=== PATIENT | male | born 1935 | race Caucasian/White ===

== ENCOUNTER 2017-07-13 14:02 | Inpatient (IN) | payer MEDICARE, BC, OTHER ==
[~2017-07-13] VITALS: Ht 172.7 cm; Wt 69.1 kg
[~2017-07-13 14:02] MED LIST: AMLO5TAB4 PO; ATOR20TA PO; BUPR150T12 PO; CALC-20 PO; DOCU100C36 PO; FOLI1TAB16 PO; LISI2.5T2 PO; MAGN500T2 PO; METH2.5T PO; METO25TA20 GT; PANT40TA2 GT; TAMS-12 GT; TRAM1TAB PO; TRAZ-144 PO; TYL2T MC; VIT1TABL75 PO
--- NOTE | 2017-07-13 14:15 | NUR ---
BBPA FROM SNF FOR ABNORMAL LABS: Hgb=6.6; Hct=20.8. PT IS CHRONIC TRACH-VENT DEPENDENT. GT NOTED. PT IS A/OX0, NON VERBAL. NAD ALL NEEDS ARE ATTENDED, KEPT WARM ADN COMFORTABLE. RT AT BEDSIDE FOR VENT SET UP
[2017-07-13 14:26] VITALS: BP 91/55
[2017-07-13] MEDS ORDERED: diphenhydrAMINE HCL 50 MG/ML VIAL IV ONE (16:00)
[2017-07-13] MEDS ORDERED: PANTOPRAZOLE 40 MG VIAL IV ONE (16:00)
[2017-07-13] MEDS ORDERED: IV NS 0.9% 500 ML BAG IV ONE (16:00)
[2017-07-13] MEDS ORDERED: ACETAMINOPHEN 325 MG TABLET PO ONE (16:00)
--- NOTE | 2017-07-13 16:02 | NUR ---
CALLED [facility], REINFORCING STEEL WORKER WAS PAGED.
[2017-07-13 16:14] LABS: BASOPHILS % (AUTO) 0.2 % (0.0-2.0); EOSINOPHILS # (AUTO) 0.1 /CMM (0.0-0.7); EOSINOPHILS % (AUTO) 0.9 % (0.0-6.0); HEMATOCRIT 21 % (39-51); HEMOGLOBIN 7.1 g/dL (13.5-17.5); LYMPHOCYTES % (AUTO) 16.6 % (20.0-44.0); MEAN CORPUSCULAR HEMOGLOBIN 30 PG (26.0-33.0); MEAN CORPUSCULAR HGB CONC 34 g/dl (31.0-36.0); MEAN CORPUSCULAR VOLUME 88 fL (80-96); MONOCYTES # (AUTO) 0.5 /CMM (0.1-1.30); MONOCYTES % (AUTO) 4.4 % (2.0-12.0); NEUTROPHILS # (AUTO) 9.2 /CMM (1.8-8.9); NEUTROPHILS % (AUTO) 77.9 % (43.0-81.0); PLATELET COUNT (AUTO) 241 /CMM (150-450); RDW COEFFICIENT OF VARIATION 15.6 (11.5-15.0); RED BLOOD CELL COUNT(AUTO) 2.35 MIL/uL (4.5-6.0); WHITE BLOOD COUNT (AUTO) 11.8 K/uL (4.3-11.0)
[2017-07-13] MEDS ORDERED: FERR300L GT (16:15)
[2017-07-13] MEDS ORDERED: CARB-93 GT (16:15)
[2017-07-13] MEDS ORDERED: PRED5TAB GT (16:15)
[2017-07-13] MEDS ORDERED: TRAM50TA2 PO (16:15)
[2017-07-13] MEDS ORDERED: TERA2CAP4 GT (16:15)
[2017-07-13] MEDS ORDERED: MAGN400T6 GT (16:15)
[2017-07-13] MEDS ORDERED: BETH50TA PO (16:15)
[2017-07-13] MEDS ORDERED: LANS30CA56 GT (16:15)
[2017-07-13] MEDS ORDERED: FINA5TAB3 GT (16:15)
[2017-07-13] MEDS ORDERED: LISI-607 GT (16:15)
[2017-07-13] MEDS ORDERED: HEPA50008 SQ (16:15)
[2017-07-13] MEDS ORDERED: NUT.237L67 GT (16:16)
[2017-07-13] MEDS ORDERED: BUPR75TA21 GT (16:19)
[2017-07-13] MEDS ORDERED: SENN-167 GT (16:19)
[2017-07-13] MEDS ORDERED: QUET25TA GT (16:19)
[2017-07-13] MEDS ORDERED: DOCU50LI GT (16:19)
[2017-07-13] MEDS ORDERED: MAGN400O6 GT (16:19)
[2017-07-13] MEDS ORDERED: BISA10SU8 RC (16:19)
[2017-07-13 16:32] LABS: ALANINE AMINOTRANSFERASE < 6 U/L (12-78); ALKALINE PHOSPHATASE 129 U/L (46-116); ASPARTATE AMINOTRANSFERASE 19 U/L (15-37); BILIRUBIN,DIRECT 0.1 mg/dL (0.0-0.2); BILIRUBIN,TOTAL 0.2 mg/dL (0.2-1.0); CALCIUM, SERUM 10.4 mg/dL (8.5-10.1); CARBON DIOXIDE 19 mmol/L (21-32); CHLORIDE 105 mmol/L (98-107); CREATININE 1.9 mg/dL (0.6-1.3); GLUCOSE 119 mg/dL (74-106); INR 1.06 (0.85-1.15); POTASSIUM 3.5 mmol/L (3.5-5.1); SODIUM SERUM 135 mmol/L (136-145); TOTAL PROTEIN, SERUM 5.7 g/dL (6.4-8.2)
[2017-07-13 16:34] LABS: TROPONIN I < 0.017 ng/mL (0.00-0.056)
[2017-07-13 16:35] LABS: UREA NITROGEN, BLOOD 115 mg/dL (7-18)
[2017-07-13] MEDS ORDERED: PANTOPRAZOLE 40 MG VIAL ONE (16:36)
--- NOTE | 2017-07-13 17:32 | NUR ---
PT CAME BACK FROM CT
[2017-07-13 17:35] VITALS: BP 132/58
--- NOTE | 2017-07-13 17:45 | NUR ---
REPORT GIVEN TO JULITA LUGO
[2017-07-13] MEDS ORDERED: ACETAMINOPHEN 325 MG TABLET ONE (18:01)
[2017-07-13] MEDS ORDERED: diphenhydrAMINE HCL 50 MG/ML VIAL ONE (18:01)
--- NOTE | 2017-07-13 18:05 | NUR ---
Information on unit of blood checked against patient wristband at bedside by two nurses. All information matches. Patient's friend/caregiver made aware of need to notify nurse at once if begins to experience itching, shortness of breath, flushing, feeling of impending doom, or other symptoms not previously present. blood transfusion started. Will cont to monitor
--- NOTE | 2017-07-13 18:35 | NUR ---
Pt transferred to floor via acls protocol
--- NOTE | 2017-07-13 18:45 | NUR ---
cable television access coordinator notes Kept patient comfortable, friend annika at bedside, will endorsed to next shift RN for admission.
--- NOTE | 2017-07-13 19:20 | NUR ---
DATABASE ADMINISTRATOR OPENING NOTES PT RESTING IN BED. PT HAS A TRACH, SHILEY 6, GTUBE, AND COLOSTOMY. PT IS NON VERBAL. PT FRIEND WAS AT BEDSIDE UNTIL 1915. NO S/S OF PAIN, DISTRESS, OR SOB AT THIS TIME. 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 ALL WOUNDS DOCUMENTED AND PHOTOGRAPHED. PT HAS A ATTILA MIDLINE, INTACT AND PATENT. PT IS S/P 1 UNIT OR PRBC. PT TOLERATED BLOOD WELL, NO ADVERSE REACTIONS. SAFETY PRECAUTIONS IN PLACE. WILL CONTINUE TO MONITOR.
[2017-07-13 20:00] VITALS: BP 134/59
--- NOTE | 2017-07-13 20:40 | NUR ---
TELEPHONE CLERK TELEGRAPH OFFICE NOTES SPOKE WITH DR CUEVAS REGARDING ADMITTING ORDERS. DR CUEVAS ORDERED TO HOLD ALL HOME MEDS SAVE PROTONIX 40 DAILY. ALSO ORDERED FOR PT TO BE NPO, ADMIT TO TELEMETRY.
[2017-07-14] VITALS: BP 109/42
[2017-07-14 04:00] VITALS: BP 119/50
--- NOTE | 2017-07-14 06:52 | NUR ---
HAZARDOUS MATERIALS ANALYST CLOSING NOTES PT RESTING IN BED. PT HAS A TRACH, SHILEY 6, GTUBE, AND COLOSTOMY. PT IS NON VERBAL. NO S/S OF PAIN, DISTRESS, OR SOB AT THIS TIME. 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 PT HAS A ATTILA MIDLINE, INTACT AND PATENT. PT IS S/P 1 UNIT OR PRBC. PT TOLERATED BLOOD WELL, NO ADVERSE REACTIONS. SAFETY PRECAUTIONS IN PLACE. WILL ENDORSE TO DAY SHIFT NURSE FOR CONTINUITY OF CARE.
[2017-07-14 07:02] LABS: BASOPHILS % (AUTO) 0.3 % (0.0-2.0); EOSINOPHILS # (AUTO) 0.2 /CMM (0.0-0.7); HEMATOCRIT 22 % (39-51); HEMOGLOBIN 7.7 g/dL (13.5-17.5); LYMPHOCYTES # (AUTO) 2.2 /CMM (0.8-4.8); MEAN CORPUSCULAR HEMOGLOBIN 30 PG (26.0-33.0); MEAN CORPUSCULAR HGB CONC 34 g/dl (31.0-36.0); MEAN CORPUSCULAR VOLUME 88 fL (80-96); MONOCYTES # (AUTO) 0.6 /CMM (0.1-1.30); NEUTROPHILS # (AUTO) 8.6 /CMM (1.8-8.9); NEUTROPHILS % (AUTO) 73.7 % (43.0-81.0); PLATELET COUNT (AUTO) 232 /CMM (150-450); RDW COEFFICIENT OF VARIATION 15.9 (11.5-15.0); RED BLOOD CELL COUNT(AUTO) 2.52 MIL/uL (4.5-6.0); WHITE BLOOD COUNT (AUTO) 11.6 K/uL (4.3-11.0)
[2017-07-14 07:19] LABS: CALCIUM, SERUM 10.3 mg/dL (8.5-10.1); CARBON DIOXIDE 17 mmol/L (21-32); CHLORIDE 108 mmol/L (98-107); CREATININE 1.9 mg/dL (0.6-1.3); GLUCOSE 70 mg/dL (74-106); POTASSIUM 3.2 mmol/L (3.5-5.1); SODIUM SERUM 137 mmol/L (136-145)
[2017-07-14 07:22] LABS: UREA NITROGEN, BLOOD 109 mg/dL (7-18)
[2017-07-14 08:00] VITALS: BP 127/58
[2017-07-14] MEDS ORDERED: PANTOPRAZOLE 40 MG VIAL IV SCH (08:00)
[2017-07-14 09:51] LABS: RETICULOCYTE COUNT 2.5 % (0.6-2.5)
--- NOTE | 2017-07-14 10:15 | NUR ---
RT RECD PT TRACHED INTACT AND SECURED ON MECH VENT. ALARMS ON AND AUDIBLE VENT PLUGGED IN RED OUTLET. BAG AND MASK AT HOB. SX SMALL YELLOW THICK SECRETIONS. NO RESP DISTRESS WILL CONTINUE TO MONITOR
[2017-07-14 10:27] LABS: THYROID STIMULATING HORMONE 2.999 uIU/mL (0.358-3.74); URIC ACID 10.2 mg/dL (2.6-7.2)
[2017-07-14] MEDS ORDERED: BISACODYL SUPP (10 MG) 10 MG/SUPP.RECT SUPP.RECT RC PRN (11:00)
[2017-07-14] MEDS ORDERED: NEPRO 1,000 ML BOTTLE GT SCH (11:00)
[2017-07-14] MEDS: predniSONE 5 MG TABLET GT SCH (12:12)
[2017-07-14] MEDS: Potassium Chloride 10 MEQ in IV D5/ 0.9% NACL 1,000 ML IV PRN ×2 (14:01→22:07)
[2017-07-14 16:14] VITALS: BP 141/61
[2017-07-14] MEDS: PANTOPRAZOLE 40 MG VIAL IV SCH (17:10)
[2017-07-14] MEDS: QUETIAPINE FUMARATE 25 MG TABLET GT SCH (17:10)
[2017-07-14] MEDS: FERROUS SULFATE UDC 300 MG/5 ML UDC GT SCH (17:10)
[2017-07-14] MEDS: DOCUSATE SODIUM LIQ 100 MG/10 ML UDC GT SCH (17:10)
--- NOTE | 2017-07-14 17:37 | NUR ---
Tele/RN - Notes Pt awake, alert to self, no s/s of pain, not in any form of distress, trached and vent dependent with Shiley 6 secured and intact, vent settings as follows: AC10, VT550, Fio2 40%, PEEP 5, tolerated well. Patient admitted for GIB/Anemia, started on Protonix IV BID, labs reviewed, hemoglobin improved post 1 unit PRBC transfusion, no active bleeding seen. Tele shows SR with first degree AVB, BBB, PVCs. Skin assessment done and documented. Wound nurse and dietary triggered for skin breakdown and low merced. KCI mattress ordered and pérez catheter in place for skin management. Pt turned and repositioned q2h and PRN if condition permits. Continue IVF D5NS + 10 meq KCl at 100 ml/hr, started on Novosource Renal at 40 ml/hr x 20 hrs. Patient scheduled for EGD in AM, consent signed by IVELISSE Ruiz NPO post midnight. Will continue with current medical management.
--- NOTE | 2017-07-14 19:51 | NUR ---
RN NOTES RECEIVED PT AWAKE ON BED, NON-VERBAL, VENT DEPENDENT, SR WITH ARRHYTHMIA, 1ST DEGREE AV BLOCK, BBB ON TELE MONITOR HR-83, G-TUBE FEEDING RUNNING @ 40ML/HR, F/C DRAINING CLEAR YELLOW URINE, COLOSTOMY BAG IN PLACE, NOT IN DISTRESS, SIDERAILSUPX2, CONTINUE TO MONITOR
[2017-07-14 19:59] VITALS: BP 133/71
[2017-07-14 20:00] VITALS: BP 133/71
--- NOTE | 2017-07-14 20:27 | NUR ---
RN NOTES SPOKE TO DR. RANDHAWA AND INFORMED HIM REGARDING PT.'S PARTNER CONCERNED. INFORMED DR. RANDHAWA THAT PT WAS IN TRAMADOL IN FACILITY BUT I ALSO INFORMED DR. RANDHAWA THAT AT THIS TIME PT. LOOKS COMFORTABLE. DR. RANDHAWA ORDERED TRAMADOL 50MG GT PRN ORDER NOTED AND CARRIED OUT
[2017-07-14] MEDS ORDERED: TRAMADOL HCL 50 MG TABLET GT SCH (21:00)
[2017-07-14] MEDS: TRAMADOL HCL 50 MG TABLET GT PRN (21:56)
[2017-07-14] MEDS: SENNOSIDES 8.6 MG TABLET GT SCH (21:56)
[2017-07-15] VITALS: BP 154/79
[2017-07-15 04:00] VITALS: BP 133/59
--- NOTE | 2017-07-15 06:00 | NUR ---
RN NOTES PT LOOKS IN PAIN-ULTRAM 50MG GT WAS GIVEN ORDERED, V/S STABLE
[2017-07-15] MEDS: TRAMADOL HCL 50 MG TABLET GT PRN ×2 (06:16→16:49)
--- NOTE | 2017-07-15 06:55 | NUR ---
RN NOTES , AWAKE, MORNING CARE RENDERED, NOT IN DISTRESS, G-TUBE FEEDING IN PLACE, SIDERAILSUPX2, PT NEEDS ATTENDED
[2017-07-15 07:15] LABS: BASOPHILS % (AUTO) 0.2 % (0.0-2.0); EOSINOPHILS # (AUTO) 0.2 /CMM (0.0-0.7); EOSINOPHILS % (AUTO) 2.2 % (0.0-6.0); HEMATOCRIT 23 % (39-51); HEMOGLOBIN 7.9 g/dL (13.5-17.5); LYMPHOCYTES # (AUTO) 2.2 /CMM (0.8-4.8); LYMPHOCYTES % (AUTO) 19.2 % (20.0-44.0); MEAN CORPUSCULAR HEMOGLOBIN 30 PG (26.0-33.0); MEAN CORPUSCULAR HGB CONC 34 g/dl (31.0-36.0); MEAN CORPUSCULAR VOLUME 88 fL (80-96); MONOCYTES # (AUTO) 0.8 /CMM (0.1-1.30); MONOCYTES % (AUTO) 6.9 % (2.0-12.0); NEUTROPHILS # (AUTO) 8.1 /CMM (1.8-8.9); NEUTROPHILS % (AUTO) 71.5 % (43.0-81.0); PLATELET COUNT (AUTO) 251 /CMM (150-450); RDW COEFFICIENT OF VARIATION 16.6 (11.5-15.0); RED BLOOD CELL COUNT(AUTO) 2.62 MIL/uL (4.5-6.0); WHITE BLOOD COUNT (AUTO) 11.3 K/uL (4.3-11.0)
--- NOTE | 2017-07-15 07:49 | NUR ---
Tele/RN - Notes Patient awake, no s/s of pain, not in any form of distress, vent settings tolerated well, tele shows SR with first degree AVB, BBB, PVCs. Nieto catheter and colostomy bag in place. Patient turned and repositioned q2h and PRN if condition permits for skin management. IVF D5NS + 10 meq KCl at 100 ml/hr infusing well on the ATTILA midline, tube feeding and GT medications held, scheduled for EGD today, pre-op checklist done. Will continue to monitor closely.
[2017-07-15 07:52] LABS: CALCIUM, SERUM 9.7 mg/dL (8.5-10.1); CARBON DIOXIDE 18 mmol/L (21-32); CHLORIDE 113 mmol/L (98-107); CREATININE 1.9 mg/dL (0.6-1.3); GLUCOSE 223 mg/dL (74-106); MAGNESIUM 1.9 mg/dL (1.8-2.4); PHOSPHORUS 3.4 mg/dL (2.5-4.9); POTASSIUM 3.2 mmol/L (3.5-5.1); SODIUM SERUM 142 mmol/L (136-145)
[2017-07-15 07:53] LABS: UREA NITROGEN, BLOOD 93 mg/dL (7-18)
[2017-07-15 08:00] VITALS: BP 121/68
[2017-07-15] MEDS: predniSONE 5 MG TABLET GT SCH (08:02)
[2017-07-15] MEDS: MAGNESIUM OXIDE 400 MG TABLET GT SCH (08:02)
[2017-07-15] MEDS: DOCUSATE SODIUM LIQ 100 MG/10 ML UDC GT SCH ×2 (08:02→16:47)
[2017-07-15] MEDS: QUETIAPINE FUMARATE 25 MG TABLET GT SCH ×2 (08:02→16:47)
[2017-07-15] MEDS: FINASTERIDE (5 MG) 5 MG TABLET GT SCH (08:02)
[2017-07-15] MEDS: FERROUS SULFATE UDC 300 MG/5 ML UDC GT SCH ×2 (08:02→16:47)
[2017-07-15] MEDS: buPROPion 75 MG TABLET GT SCH ×2 (08:03→16:47)
[2017-07-15] MEDS: AMLODIPINE BESYLATE 5 MG TABLET PO SCH ×2 (08:03→16:47)
[2017-07-15] MEDS: PANTOPRAZOLE 40 MG VIAL IV SCH ×2 (08:18→16:47)
[2017-07-15] MEDS ORDERED: HYDROGEL DRESSING 90 GM TUBE TP SCH (09:00)
[2017-07-15] MEDS: POTASSIUM CL. PREMIX PERIPHER. 50 ML IV SCH ×6 (10:21→16:50)
[2017-07-15] MEDS: Potassium Chloride 10 MEQ in IV D5/ 0.9% NACL 1,000 ML IV PRN (10:30)
[2017-07-15 12:00] VITALS: BP 131/65
[2017-07-15] MEDS ORDERED: HYDROCODONE/APAP 5/325MG 1 EACH TABLET PO PRN (12:00)
[2017-07-15] MEDS: MORPHINE SULFATE INJ 4 MG/ML DISP.SYRIN IV PRN (14:25)
[2017-07-15 16:00] VITALS: BP 131/73
[2017-07-15] MEDS: DAKINS QUARTER STRENGTH (0.125%) 480 ML BOTTLE TOP SCH (16:00)
[2017-07-15 18:07] LABS: APPEARANCE,URINE SL CLOUDY (CLEAR); BILIRUBIN,URINE NEGATIVE (NEGATIVE); BLOOD, URINE 2+ Ery/uL (NEGATIVE); COLOR,URINE YELLOW (YELLOW); KETONES,URINE NEGATIVE (NEGATIVE); LEUKOCYTE ESTERASE ,URINE 3+ (NEGATIVE); NITRITE, URINE POSITIVE (NEGATIVE); PROTEIN,URINE 1+ mg/dl (NEGATIVE); UGLUCOSE NEGATIVE (NEGATIVE); UROBILINOGEN,URINE 0.2 EU/dL (0.2)
--- NOTE | 2017-07-15 18:08 | NUR ---
Tele/RN - Notes Patient in no acute distress, no s/s of pain, EGD shows gastritis, no bleeding, resumed meds and tube feeding. Potassium level 3.2, repleted with KCl [address] chest wo contrast done, pending result. All needs anticipated. Patient scheduled for sacral wound debridement tomorrow, consent signed by DPOA. Will continue to monitor closely.
[2017-07-15 19:03] LABS: BACTERIA,URINE Many /HPF (None Seen); CALCIUM OXALATE CRYSTALS,UR Few /HPF (None Seen); SQUAMOUS EPITHELIAL CELL,UR Moderate /HPF (None Seen); WBC,URINE TOO NUMEROUS TO COUN /HPF (0-3)
--- NOTE | 2017-07-15 19:30 | NUR ---
STRUCTURAL METAL FABRICATOR APPRENTICE OPENING NOTES: PATIENT IN BED, EYES OPEN SPONTANEOUSLY TO NAME AND TOUCH, NON VERBAL. APPEARS CALM AND IN NO DISTRESS. ON [facility] VENTILATION VIA TRACH WITH THE FF SETTINGS: AC: 10, TV: 550, FIO2: 40%, PEEP: 5. BREATHING EVEN AND UNLABORED, O2 SAT AT 99%. ON TELE MONITORING: SINUS RHYTHM WITH FIRST DEGREE AVB AT RATE OF 80S. WITH GT FEEDING OF NOVASOURCE RUNNING AT 40 ML/HR. COLOSTOMY BAG AT R LOWER ABDOMEN, WITH MINIMAL AMOUNT OF SOFT DARK BROWN STOOL. ORTIZ CATHETER IN PLACE DRAINING CLEAR YELLOW URINE. ATTILA MIDLINE G 20 INTACT AND PATENT, CURRENTLY INFUSING WITH NS 1L + 10 MEQS KCL X 100 ML/HR. MAINTAINED HOB ELEVATED. PROVIDED FOR COMFORT AND SAFETY. BED IN LOWEST AND LOCKED POSITION, SIDERAILS UP X 3, CLINICAL ALARMS AT HIGHEST LEVEL. WILL CONT TO MONITOR.
[2017-07-15 20:00] VITALS: BP 135/64
--- NOTE | 2017-07-15 20:34 | NUR ---
CALLED DR ESTEFANY CUEVAS TO INFORM RE RECENT CT CHEST RESULT, SHOWING VOLUME OVERLOAD WITH PULMO EDEMA, AND ASKED RE CURRENT IV FLUIDS ON ORDER. NNO GIVEN BY . WILL CONT TO MONITOR PATIENT FOR SIGNS OF CONGESTION.
[2017-07-15] MEDS: SENNOSIDES 8.6 MG TABLET GT SCH (22:19)
[2017-07-15] MEDS: RENAL NOVASOURCE 1,000 ML BOTTLE GT PRN (22:24)
[2017-07-16] VITALS (7 sets, daily range): BP systolic 117–144; BP diastolic 46–69
[2017-07-16] MEDS: MORPHINE SULFATE INJ 4 MG/ML DISP.SYRIN IV PRN ×4 (00:57→21:04)
--- NOTE | 2017-07-16 01:03 | NUR ---
RN NOTES: PATIENT APPEARS TO BE IN PAIN, AWAKE, RESTLESS, RR AT 24-26 PER MIN. VS STABLE. ADMINISTERED MORPHINE 2 MG IV. POSITIONED FOR COMFORT. WILL CONT TO MONITOR.
--- NOTE | 2017-07-16 03:24 | NUR ---
RN NOTES: CRACKLES HEARD UPON AUSCULTATION. ALSO ASSESSED BY RT. IV FLUIDS HELD FOR NOW. MAINTAINED HOB ELEVATED, SUCTIONED PRN. O2 SAT REMAINS AT 99%.
[2017-07-16] MEDS: DAKINS QUARTER STRENGTH (0.125%) 480 ML BOTTLE TOP SCH ×2 (04:27→15:22)
[2017-07-16] MEDS: TRAMADOL HCL 50 MG TABLET GT PRN (04:31)
--- NOTE | 2017-07-16 04:31 | NUR ---
RN NOTES: PATIENT APPEARS RESTLESS, GRIMACING. BP CHECKED, STABLE. ADMINISTERED TRAMADOL 50 MG PER GT. WILL CONT TO MONITOR.
--- NOTE | 2017-07-16 06:05 | NUR ---
RN NOTES: PATIENT AWAKE, APPEARS RESTLESS STILL AND WITH OCCASIONAL GRIMACE. RESPIRATIONS AT 22-24 RAMSES MIN. VS STABLE. ADMINISTERED MORPHINE 2 MG IV. WILL CONT TO MONITOR.
--- NOTE | 2017-07-16 06:43 | NUR ---
BUFFING MACHINE OPERATOR CLOSING NOTES: PATIENT IN BED, NON VERBAL, EYES OPEN SPONTANEOUSLY, ON MECH VENTILATION, BREATHING EVEN AND UNLABORED. SUCTIONED PRN. MAINTAINED HOB ELEVATED. O2 SAT REMAINS AT 99-100%. ON TELE MONITORING: SINUS RHYTHM WITH 1ST DEG AVB AT RATE OF 80S. WITH GT FEEDING OF NOVASOURCE RUNNING AT 40 ML/HR. COLOSTOMY BAG REPLACED. EMPTIED PRN. ORTIZ CATHETER IN PLACE DRAINING CLOUDY YELLOW URINE. WOUND TREATMENT DONE. TURNED AND REPOSITIONED. PROVIDED FOR COMFORT AND SAFETY. BED IN LOWEST AND LOCKED POSITION, SIDERAILS UP X 3, CLINICAL ALARMS AT HIGHEST LEVEL. WILL ENDORSE TO AM RN FOR ANA.
[2017-07-16 07:04] LABS: BASOPHILS % (AUTO) 0.3 % (0.0-2.0); EOSINOPHILS # (AUTO) 0.3 /CMM (0.0-0.7); EOSINOPHILS % (AUTO) 2.9 % (0.0-6.0); HEMATOCRIT 25 % (39-51); HEMOGLOBIN 8.4 g/dL (13.5-17.5); LYMPHOCYTES # (AUTO) 2.6 /CMM (0.8-4.8); LYMPHOCYTES % (AUTO) 21.9 % (20.0-44.0); MEAN CORPUSCULAR HEMOGLOBIN 31 PG (26.0-33.0); MEAN CORPUSCULAR HGB CONC 34 g/dl (31.0-36.0); MEAN CORPUSCULAR VOLUME 91 fL (80-96); MONOCYTES # (AUTO) 0.7 /CMM (0.1-1.30); MONOCYTES % (AUTO) 5.8 % (2.0-12.0); NEUTROPHILS # (AUTO) 8.1 /CMM (1.8-8.9); NEUTROPHILS % (AUTO) 69.1 % (43.0-81.0); PLATELET COUNT (AUTO) 269 /CMM (150-450); RDW COEFFICIENT OF VARIATION 16.5 (11.5-15.0); RED BLOOD CELL COUNT(AUTO) 2.75 MIL/uL (4.5-6.0); WHITE BLOOD COUNT (AUTO) 11.7 K/uL (4.3-11.0)
--- NOTE | 2017-07-16 07:15 | NUR ---
RN INITIAL NOTES PATIENT IS NON-VERBAL, RESTING COMFORTABLY, NO S/SX OF PAIN OR DISCOMFORT, TOLERATING MECHANICAL VENT SETTINGS, NO SHORTNESS OF BREATH NOTED. GTF ONGOING NO RESIDUAL, NOVASOURCE INCREASED TO 45CC/HR AND WILL MONITOR RESIDUAL, ABD DRESSING C/D/I, COLOSTOMY IN PLACED AND DRAINING, NEEDS ATTENDED AND MET, CALL LIGHT WITHIN REACH, WILL CONTINUE TO MONITOR. Addendum: 07/16/17 at 0824 by MIRZA KIRK RN CORRECTION: GTF CHANGED BACK TO 40CC/HR, PER MD'S ORDER.
[2017-07-16 07:19] LABS: CALCIUM, SERUM 9.8 mg/dL (8.5-10.1); CARBON DIOXIDE 18 mmol/L (21-32); CHLORIDE 117 mmol/L (98-107); CREATININE 1.7 mg/dL (0.6-1.3); GLUCOSE 191 mg/dL (74-106); MAGNESIUM 1.8 mg/dL (1.8-2.4); POTASSIUM 3.6 mmol/L (3.5-5.1); SODIUM SERUM 144 mmol/L (136-145)
[2017-07-16 07:22] LABS: UREA NITROGEN, BLOOD 88 mg/dL (7-18)
[2017-07-16 08:11] LABS: *SPE A/G RATIO 0.4 (0.7-1.7); *SPE ALBUMIN 1.5 g/dL (2.9-4.4); *SPE ALPHA-1-GLOBULIN 0.3 g/dL (0.0-0.4); *SPE ALPHA-2-GLOBULIN 0.7 g/dL (0.4-1.0); *SPE BETA GLOBULIN 1.2 g/dL (0.7-1.3); *SPE GLOBULIN, TOTAL 3.5 g/dL (2.2-3.9); *SPE M-SPIKE Not Observed g/dL (Not Observed); *SPEGAMMA GLOBULIN 1.2 g/dL (0.4-1.8)
[2017-07-16] MEDS: DOCUSATE SODIUM LIQ 100 MG/10 ML UDC GT SCH ×2 (09:24→17:22)
[2017-07-16] MEDS: QUETIAPINE FUMARATE 25 MG TABLET GT SCH ×2 (09:25→17:23)
[2017-07-16] MEDS: AMLODIPINE BESYLATE 5 MG TABLET PO SCH ×2 (09:25→17:22)
[2017-07-16] MEDS: MAGNESIUM OXIDE 400 MG TABLET GT SCH (09:25)
[2017-07-16] MEDS: predniSONE 5 MG TABLET GT SCH (09:25)
[2017-07-16] MEDS: FINASTERIDE (5 MG) 5 MG TABLET GT SCH (09:25)
[2017-07-16] MEDS: buPROPion 75 MG TABLET GT SCH ×2 (09:25→17:22)
[2017-07-16] MEDS: PANTOPRAZOLE 40 MG VIAL IV SCH ×2 (09:25→17:22)
[2017-07-16] MEDS: FERROUS SULFATE UDC 300 MG/5 ML UDC GT SCH ×2 (09:27→17:22)
--- NOTE | 2017-07-16 12:30 | NUR ---
RN NOTES SACRAL CHECKED FOR BLEEDING. NO FURTHER EPISODE OF BLEEDING AT THIS TIME. GAUZE CHANGED AND COVERED WITH ABD PAD.
[2017-07-16] MEDS ORDERED: LEVOFLOXACIN 500 MG /D5W 100ML 500 MG in PREMIX 1 EA IV SCH (14:30)
--- NOTE | 2017-07-16 14:30 | NUR ---
WOUND CARE CONSULT: PT FOLLOWED BY PLASTIC SURGICAL TEAM FOR WOUNDS. DEFER TO SURGICAL TEAM FOR WOUND TREATMENT PLAN. ALL SKIN PROTECTION AND PRESSURE ULCER PREVENTION MEASURES IN PLACE. PT ON [place] ELUM ISOFLEX LOW AIRLOSS BED. CURRENT SON SCORE IS 10.
[2017-07-16] MEDS ORDERED: LEVOFLOXACIN 750 MG /D5W 150ML 750 MG in PREMIX 1 EA IV SCH (15:00)
[2017-07-16] MEDS: CEFTRIAXONE 1 G in IV D5W 50 ML IV SCH (15:22)
--- NOTE | 2017-07-16 18:57 | NUR ---
RN NOTES PATIENT TRANSFERRED TO A LOW AIR LOSS MATTRESS, WOUND CARE TREATMENT RENDERED, TURNED AND REPOSITIONED EVERY 2 HOURS, MECHANICAL VENT SETTINGS TOLERATING WELL, GTF TURNED OFF. REAGAN MIDLINE SALINE LOCK. KEPT PATIENT COMFORTABLE, DRY DRESSING ON SACRAL AREA C/D/I, NO S/SX OF BLEEDING NOTED, CALL LIGHT WITHIN REACH, WILL ENDORSE TO FORM BUILDER FOR ANA.
[2017-07-16] MEDS ORDERED: Z GUARD REMEDY 2 OZ OINT TP PRN (19:00)
--- NOTE | 2017-07-16 19:30 | NUR ---
INSIDE SALES TRAINER OPENING NOTES: PATIENT IN BED, EYES OPEN SPONTANEOUSLY TO NAME AND TOUCH, NON VERBAL. APPEARS CALM AND IN NO DISTRESS. ON [facility] VENTILATION VIA TRACH WITH THE FF SETTINGS: AC: 10, TV: 550, FIO2: 40%, PEEP: 5. BREATHING EVEN AND UNLABORED, RHONCHI HEARD OVER JOSE MARTIN UPPER LUNG WEST, O2 SAT AT 99%. ON TELE MONITORING: SINUS RHYTHM WITH FIRST DEGREE AVB AT RATE OF 80S. WITH G TUBE OVER LEFT SIDE OF ABDOMEN, FEEDING TO BE RESUMED AT 2200PM. COLOSTOMY BAG AT R LOWER ABDOMEN, WITH LIQUID STOOLS IN BAG. ORTIZ CATHETER IN PLACE DRAINING CLOUDY YELLOW URINE. ATTILA MIDLINE G 20 INTACT AND PATENT TO FLUSH. MAINTAINED HOB ELEVATED. SUCTIONED MOUTH AND TRACHE. PROVIDED FOR COMFORT AND SAFETY. BED IN LOWEST AND LOCKED POSITION, SIDERAILS UP X 3, CLINICAL ALARMS AT HIGHEST LEVEL. WILL CONT TO MONITOR.
[2017-07-16] MEDS: SENNOSIDES 8.6 MG TABLET GT SCH (21:05)
[2017-07-16] MEDS: RENAL NOVASOURCE 1,000 ML BOTTLE GT PRN (21:43)
[2017-07-17] VITALS: BP 117/60
[2017-07-17] MEDS: DAKINS QUARTER STRENGTH (0.125%) 480 ML BOTTLE TOP SCH ×2 (03:58→15:24)
[2017-07-17 04:00] VITALS: BP 139/74
[2017-07-17] MEDS: MORPHINE SULFATE INJ 4 MG/ML DISP.SYRIN IV PRN ×3 (04:28→20:34)
--- NOTE | 2017-07-17 04:32 | NUR ---
RN NOTES: PATIENT AWAKE, RESTLESS, APPEARS TO BE IN PAIN. VS STABLE. ADMINISTERED MORPHINE 2 MG IV PRN. WILL CONT TO MONITOR.
--- NOTE | 2017-07-17 06:30 | NUR ---
DIAPHRAGM BUILDER CLOSING NOTES: PATIENT IN BED, NON VERBAL, EYES OPEN SPONTANEOUSLY. ON [facility] VENTILATION, BREATHING EVEN AND UNLABORED. SUCTIONED PRN. O2 SAT AT 98-99%. ON TELE MONITORING: SINUS RHYTHM WITH FIRST DEGREE AVB, BBB AND PVCS. COLOSTOMY AT R SIDE OF ABDOMEN, DRAINED LIQUID STOOL FROM IT THROUGH NIGHT. ORTIZ CATHETER IN PLACE DRAINING CLOUDY YELLOW URINE. ON GT FEEDING OF NOVASOURCE RUNNING AT 40 ML/HR, PATIENT ABLE TO TOLERATE FEEDING WELL. MORNING CARE RENDERED. DUE MEDS GIVEN. PROVIDED FOR COMFORT AND SAFETY. BED IN LOWEST AND LOCKED POSITION, SIDERAILS UP X 3, CLINICAL ALARMS AT HIGHEST LEVEL. WILL ENDORSE TO AM RN FOR ANA.
--- NOTE | 2017-07-17 07:42 | NUR ---
TELE/RN OPENING NOTE PATIENT IS RECEIVED IN BED, NON-VERBAL, OPENS EYES SPONTANEOUSLY. PATIENT IS ON VENT. RESPIRATION REGULAR AND UNLABORED. O2 SAT AT 98%. PATIENT SINUS RHYTHM WITH AVB AND BBB. PATIENT IN NO APPARENT DISTRESS. RIGHT SIDE COLOSTOMY BAG DARNING LIQUID STOOL. ORTIZ CATH DARNING FREELY CLEAR, YELLOW COLOR URINE. GT FEEDING ON AT 40 ML/MR. HOB ELEVATED. BED LOW AND LOCKED. SIDE RAILS UP X3. CALL LIGHT WITHIN REACH. WILL CONTINUE TO MONITOR.
[2017-07-17 08:00] VITALS: BP 154/63
[2017-07-17] MEDS: MAGNESIUM OXIDE 400 MG TABLET GT SCH (08:59)
[2017-07-17] MEDS: PANTOPRAZOLE 40 MG VIAL IV SCH ×2 (08:59→16:51)
[2017-07-17] MEDS: FINASTERIDE (5 MG) 5 MG TABLET GT SCH (08:59)
[2017-07-17] MEDS: predniSONE 5 MG TABLET GT SCH (08:59)
[2017-07-17] MEDS: DOCUSATE SODIUM LIQ 100 MG/10 ML UDC GT SCH ×2 (09:00→16:51)
[2017-07-17] MEDS: AMLODIPINE BESYLATE 5 MG TABLET PO SCH ×2 (09:00→16:51)
[2017-07-17] MEDS: QUETIAPINE FUMARATE 25 MG TABLET GT SCH ×2 (09:00→16:51)
[2017-07-17] MEDS: FERROUS SULFATE UDC 300 MG/5 ML UDC GT SCH ×2 (09:01→16:51)
[2017-07-17] MEDS: buPROPion 75 MG TABLET GT SCH ×2 (09:02→16:51)
[2017-07-17 09:24] LABS: BASOPHILS % (AUTO) 0.4 % (0.0-2.0); EOSINOPHILS # (AUTO) 0.3 /CMM (0.0-0.7); EOSINOPHILS % (AUTO) 2.2 % (0.0-6.0); HEMATOCRIT 25 % (39-51); HEMOGLOBIN 8.3 g/dL (13.5-17.5); LYMPHOCYTES # (AUTO) 2.6 /CMM (0.8-4.8); LYMPHOCYTES % (AUTO) 18.3 % (20.0-44.0); MEAN CORPUSCULAR HEMOGLOBIN 30 PG (26.0-33.0); MEAN CORPUSCULAR HGB CONC 34 g/dl (31.0-36.0); MEAN CORPUSCULAR VOLUME 91 fL (80-96); MONOCYTES # (AUTO) 0.6 /CMM (0.1-1.30); MONOCYTES % (AUTO) 4.4 % (2.0-12.0); NEUTROPHILS # (AUTO) 10.4 /CMM (1.8-8.9); NEUTROPHILS % (AUTO) 74.7 % (43.0-81.0); PLATELET COUNT (AUTO) 231 /CMM (150-450); RDW COEFFICIENT OF VARIATION 17.1 (11.5-15.0); RED BLOOD CELL COUNT(AUTO) 2.73 MIL/uL (4.5-6.0)
[2017-07-17 09:39] LABS: CALCIUM, SERUM 9.9 mg/dL (8.5-10.1); CARBON DIOXIDE 18 mmol/L (21-32); CHLORIDE 119 mmol/L (98-107); CREATININE 1.7 mg/dL (0.6-1.3); GLUCOSE 153 mg/dL (74-106); MAGNESIUM 1.9 mg/dL (1.8-2.4); POTASSIUM 3.9 mmol/L (3.5-5.1); SODIUM SERUM 147 mmol/L (136-145); UREA NITROGEN, BLOOD 78 mg/dL (7-18)
[2017-07-17 12:00] VITALS: BP 152/63
[2017-07-17] MEDS: CEFTRIAXONE 1 G in IV D5W 50 ML IV SCH (15:23)
[2017-07-17 16:00] VITALS: BP 161/76
[2017-07-17] MEDS: RENAL NOVASOURCE 1,000 ML BOTTLE GT PRN (17:36)
[2017-07-17] MEDS: MEROPENEM 500 MG in IV NS 0.9% 50 ML IV SCH (18:00)
--- NOTE | 2017-07-17 19:30 | NUR ---
BRIMMER BLOCKER NOTE RECEIVED PATIENT FROM DAY SHIFT, PATIENT IS AWAKE, OPEN EYES, NON-VERBAL, VENT DEPENDENT PATIENT, NO RESPIRATORY DISTRESS AT THIS TIME, O2 SAT 99%. TELE MONITOR SR WITH BBB&PVC. GTUBE FEEDING, RUNNING NOVASOURCE 40ML/HR, AND ORTIZ WITH CLOUDY YELLOW URINE NOTED. COLOSTOMY BAG PRESENT WELL WITH GREENISH STOOL INSIDE. LEFT UPPER MIDLINE IS PATENT AND INTACT, HL ONLY. SRX2, BED IN LOW POSITION, CALL LIGHT WITHIN REACH, WILL CONTINUE TO MONITOR PATIENT.
--- NOTE | 2017-07-17 19:34 | NUR ---
TELE/RN CLOSING NOTE PATIENT OPENS EYES TO VERBAL STIMULI, NON-VERBAL. PATIENT IS ON VENT. RESPIRATION REGULAR AND UNLABORED AND O2 SAT AT 98%. PATIENT SINUS RHYTHM WITH AVB AND BBB. PATIENT IN NO APPARENT DISTRESS. RIGHT SIDE COLOSTOMY BAG DARNING LIQUID STOOL. ORTIZ CATH DARNING FREELY CLEAR, YELLOW COLOR URINE. GT FEEDING ON AT 40 ML/MR. HOB ELEVATE TO PREVENT ASPIRATION. GOOD AND GENTLE SKIN CARE RENDERED. KEPT CLEAN AND COMFORTABLE. ALL NEEDS ATTENDED. BED LOW AND LOCKED. SIDE RAILS UP X3. CALL LIGHT WITHIN REACH. WILL ENDORSE TO SHERIFF'S OFFICER.
[2017-07-17 20:00] VITALS: BP 135/57
[2017-07-17] MEDS: SENNOSIDES 8.6 MG TABLET GT SCH (21:27)
[2017-07-18 00:46] VITALS: BP 142/56
[2017-07-18 04:00] VITALS: BP 141/63
[2017-07-18] MEDS: DAKINS QUARTER STRENGTH (0.125%) 480 ML BOTTLE TOP SCH ×2 (04:11→16:55)
[2017-07-18] MEDS: MORPHINE SULFATE INJ 4 MG/ML DISP.SYRIN IV PRN ×2 (04:56→17:16)
[2017-07-18] MEDS: MEROPENEM 500 MG in IV NS 0.9% 50 ML IV SCH ×2 (05:59→17:09)
[2017-07-18 06:50] LABS: BASOPHILS % (AUTO) 0.1 % (0.0-2.0); EOSINOPHILS # (AUTO) 0.4 /CMM (0.0-0.7); EOSINOPHILS % (AUTO) 2.5 % (0.0-6.0); HEMATOCRIT 27 % (39-51); HEMOGLOBIN 9.1 g/dL (13.5-17.5); LYMPHOCYTES # (AUTO) 3.2 /CMM (0.8-4.8); LYMPHOCYTES % (AUTO) 19.3 % (20.0-44.0); MEAN CORPUSCULAR HEMOGLOBIN 30 PG (26.0-33.0); MEAN CORPUSCULAR HGB CONC 34 g/dl (31.0-36.0); MEAN CORPUSCULAR VOLUME 91 fL (80-96); MONOCYTES # (AUTO) 0.5 /CMM (0.1-1.30); MONOCYTES % (AUTO) 3.3 % (2.0-12.0); NEUTROPHILS # (AUTO) 12.4 /CMM (1.8-8.9); NEUTROPHILS % (AUTO) 74.8 % (43.0-81.0); PLATELET COUNT (AUTO) 238 /CMM (150-450); RDW COEFFICIENT OF VARIATION 17.3 (11.5-15.0); RED BLOOD CELL COUNT(AUTO) 2.99 MIL/uL (4.5-6.0); WHITE BLOOD COUNT (AUTO) 16.6 K/uL (4.3-11.0)
--- NOTE | 2017-07-18 06:54 | NUR ---
OPERATIONS AGENT NOTE PATIENT IS RESTING IN BED, NO ACUTE DISTRESS NOTED DURING THE NIGHTSHIFT. MORNING CARE RENDERED, DUE MEDS GIVEN, DRESSING CHANGE COMPLETED. TELE SR 85 WITH BBB, PVCS. PROVIDED FOR COMFORT AND SAFETY. BED IN LOWEST AND LOCKED POSITION, SIDERAILS UP X 2, CLINICAL ALARMS AT HIGHEST LEVEL. WILL ENDORSE TO AM RN FOR ANA.
[2017-07-18 07:10] LABS: CALCIUM, SERUM 10.1 mg/dL (8.5-10.1); CARBON DIOXIDE 19 mmol/L (21-32); CHLORIDE 119 mmol/L (98-107); CREATININE 1.6 mg/dL (0.6-1.3); GLUCOSE 143 mg/dL (74-106); MAGNESIUM 1.8 mg/dL (1.8-2.4); PHOSPHORUS 2.6 mg/dL (2.5-4.9); POTASSIUM 3.7 mmol/L (3.5-5.1); SODIUM SERUM 148 mmol/L (136-145); UREA NITROGEN, BLOOD 76 mg/dL (7-18)
[2017-07-18 08:00] VITALS: BP_SYST 119; BP_SYST 126; BP_DIAS 65; BP_DIAS 68
--- NOTE | 2017-07-18 08:17 | NUR ---
PEDIATRICS PHYSICIAN OPENING NOTE RECEIVED BEDSIDE SBAR REPORT ON THE PATIENT. PATIENT IS NON-VERBAL, BUT OPENS EYES TO NAME AND TOUCH. BED IS LOCKED IN LOWEST POSITION, SIDE RAILS UP X3, BED ALARM IS ON. CALL LIGHT WITHIN REACH. PATIENT'S ROOM CLOSE TO THE NURSES STATION OF OBSERVATION. PATIENT IS ON VENTILATOR. VENTILATOR SETTINGS ORDERED. VENTILATOR PLUGGED INTO THE RED OUTLET. MULTIPLE SKIN CONDITIONS PRESENT. EXTERNAL IRRIGATION LABORER READING SR 87 W BBB AND OCCASIONAL PVS's. PATIENT HAS A COLOSTOMY BAG, ORTIZ CATHETER AND G-TUBE FOR ENTERAL FEEDING. FEEDING RATE ORDERED. ATTILA MIDLINE IS INTACT. NO S/S OF DISTRESS. NO S/S OF PAIN/DISCOMFORT. PATIENT REPOSITIONED FOR COMFORT AND MAINTENANCE OF FUNCTIONAL ALIGNMENT OF THE LIMBS. WILL CONTINUE TO ASSESS/MONITOR THROUGHOUT THE SHIFT.
[2017-07-18] MEDS: predniSONE 5 MG TABLET GT SCH (09:34)
[2017-07-18] MEDS: PANTOPRAZOLE 40 MG VIAL IV SCH ×2 (09:34→17:05)
[2017-07-18] MEDS: buPROPion 75 MG TABLET GT SCH ×2 (09:34→17:03)
[2017-07-18] MEDS: QUETIAPINE FUMARATE 25 MG TABLET GT SCH ×2 (09:34→17:03)
[2017-07-18] MEDS: FINASTERIDE (5 MG) 5 MG TABLET GT SCH (09:34)
[2017-07-18] MEDS: DOCUSATE SODIUM LIQ 100 MG/10 ML UDC GT SCH ×2 (09:34→17:02)
[2017-07-18] MEDS: AMLODIPINE BESYLATE 5 MG TABLET PO SCH ×2 (09:35→17:04)
[2017-07-18] MEDS: MAGNESIUM OXIDE 400 MG TABLET GT SCH (09:38)
[2017-07-18] MEDS: FERROUS SULFATE UDC 300 MG/5 ML UDC GT SCH ×2 (09:38→17:02)
--- NOTE | 2017-07-18 09:38 | NUR ---
MAG OXIDE FELL ON TH EFLOOR WHEN OPENING THE PACKAGE. DISPENSED ANOTHER ONE FROM [facility]. ADMINISTERED ONCE ORDERED. TABLET THAT FELL ON THE FLOOR WAS DISCARDED AT PHARMACY [facility] AT IN THE MEDICATION ROOM PER PROTOCOL.
[2017-07-18 12:00] VITALS: BP_SYST 126; BP_SYST 133; BP_DIAS 65; BP_DIAS 68
[2017-07-18 16:00] VITALS: BP 149/69
--- NOTE | 2017-07-18 17:42 | NUR ---
ADMINISTERED MORPHINE PATIENT APPEARED DISTRESS AND UNCOMFORTABLE. FLACC ASSESSMENT REVEALED PAIN RATING 7. WOUND CARE PERFORMED. COLOSTOMY BAG CHANGED. PATIENT TOLERATED PROCEDURE WELL.
--- NOTE | 2017-07-18 19:32 | NUR ---
RUG SHAMPOOER CLOSING NOTE GAVE BEDSIDE SBAR REPORT ON THE PATIENT. PATIENT IS NON-VERBAL, BUT OPENS EYES TO NAME AND TOUCH. BED IS LOCKED IN LOWEST POSITION, SIDE RAILS UP X3, BED ALARM IS ON. CALL LIGHT WITHIN REACH. PATIENT'S ROOM CLOSE TO THE NURSES STATION OF OBSERVATION. PATIENT IS ON VENTILATOR. VENTILATOR SETTINGS ORDERED. VENTILATOR PLUGGED INTO THE RED OUTLET. MULTIPLE SKIN CONDITIONS PRESENT. EXTERNAL INSULATING MACHINE OPERATOR READING SR 87 W BBB AND OCCASIONAL PVS's. PATIENT HAS A COLOSTOMY BAG, ORTIZ CATHETER AND G-TUBE FOR ENTERAL FEEDING. FEEDING RATE ORDERED. ATTILA MIDLINE IS INTACT. NO S/S OF DISTRESS. NO S/S OF PAIN/DISCOMFORT. PATIENT REPOSITIONED FOR COMFORT AND MAINTENANCE OF FUNCTIONAL ALIGNMENT OF THE LIMBS. ENDORSED TO THE FRESH FOODS CLERK NURSE FOR ANA.
[2017-07-18 20:00] VITALS: BP 150/59
--- NOTE | 2017-07-18 20:57 | NUR ---
DAIRY INSPECTOR INITIAL NOTE PT IS IN BED RESTING. NON-VERBAL BUT OPENS EYES TO TOUCH. PT IS ON VENT, SETTINGS ORDERED, TOLERATING WELL. TELE MONITOR SHOWS SR WITH 1ST DEGREE BLOCK AND BBB AT 87. GTUBE IS INTACT WITH NOVASOURCE AT 40 ML/HR. ORDER TO FLUSH NG-TUBE WITH 250 CC Q4H. IV ACCESS IS INTACT AND PATENT. MULTIPLE SKIN TEARS ON EXTREMITIES AND A SACRAL WOUND, WOUND CARE TO BE RENDERED. COLOSTOMY BAG IS INTACT AND PATENT. BED IS IN LOW AND LOCKED POSITION, SIDE RAILS UP. WILL CONTINUE TO MONITOR PT.
[2017-07-18] MEDS: DOXYCYCLINE HYCLATE (100 MG) 100 MG TABLET PO SCH (21:14)
[2017-07-18] MEDS: SENNOSIDES 8.6 MG TABLET GT SCH (21:14)
[2017-07-19] VITALS: BP 133/61
[2017-07-19 04:00] VITALS: BP 145/71
[2017-07-19] MEDS: DAKINS QUARTER STRENGTH (0.125%) 480 ML BOTTLE TOP SCH ×2 (04:50→16:53)
[2017-07-19] MEDS: MEROPENEM 500 MG in IV NS 0.9% 50 ML IV SCH ×2 (05:02→17:34)
[2017-07-19] MEDS: RENAL NOVASOURCE 1,000 ML BOTTLE GT PRN (05:52)
--- NOTE | 2017-07-19 06:28 | NUR ---
COAL SHOVELER CLOSING NOTE PT IS IN BED RESTING. ON VENT, SETTINGS ORDERED. TOLERATING WELL NO SIGNS OF SOB OR DISTRESS. IV ACCESS IS INTACT AND PATENT. COLOSTOMY BAG WAS CHANGED. ORTIZ CATHETER IS INTACT AND DRAINING WELL. WOUND CARE WAS RENDERED. ALL NEEDS WERE ANTICIPATED AND MET. NO ACUTE CHANGES THROUGHOUT THE SHIFT. BED IS IN LOW AND LOCKED POSITION, SIDE RAILS ARE UP. WILL ENDORSE TO DAYSHIFT.
--- NOTE | 2017-07-19 07:20 | NUR ---
CHAIRMAN OF THE BOARD INITIAL NOTE PT IS IN BED RESTING. NON-VERBAL BUT OPENS EYES TO TOUCH. PT IS ON VENT, SETTINGS ORDERED, TOLERATING WELL. ON CONTINUED TELE MONITORING. GTUBE IS INTACT WITH NOVASOURCE AT 40 ML/HR. ORDER TO FLUSH NG-TUBE WITH 250 CC Q4H. IV ACCESS IS INTACT AND PATENT NO REDNESS OR INFILTRATION NOTED. COLOSTOMY BAG IS INTACT AND PATENT. BED IS IN LOW AND LOCKED POSITION, SIDE RAILS UP. WILL CONTINUE TO MONITOR
[2017-07-19 08:00] VITALS: BP 126/56
[2017-07-19] MEDS: DOCUSATE SODIUM LIQ 100 MG/10 ML UDC GT SCH ×2 (09:00→16:39)
[2017-07-19] MEDS: MAGNESIUM OXIDE 400 MG TABLET GT SCH (09:10)
[2017-07-19] MEDS: QUETIAPINE FUMARATE 25 MG TABLET GT SCH ×2 (09:10→16:39)
[2017-07-19] MEDS: FINASTERIDE (5 MG) 5 MG TABLET GT SCH (09:10)
[2017-07-19] MEDS: AMLODIPINE BESYLATE 5 MG TABLET PO SCH ×2 (09:11→16:39)
[2017-07-19] MEDS: PANTOPRAZOLE 40 MG VIAL IV SCH ×2 (09:12→16:39)
[2017-07-19] MEDS: DOXYCYCLINE HYCLATE (100 MG) 100 MG TABLET PO SCH ×2 (09:12→20:29)
[2017-07-19] MEDS: buPROPion 75 MG TABLET GT SCH ×2 (09:12→16:39)
[2017-07-19] MEDS: predniSONE 5 MG TABLET GT SCH (09:12)
[2017-07-19] MEDS: FERROUS SULFATE UDC 300 MG/5 ML UDC GT SCH ×2 (09:15→16:40)
--- NOTE | 2017-07-19 09:30 | NUR ---
RN NOTES COLACE NON ADMINISTERED PER REPORT PT WITH LOOSE STOOL IN COLOSTOMY BAG CHANGED MULTIPLE TIMES YESTERDAY, NOTED WITH LOOSE STOOL IN COLOSTOMY BAG, AWARE, WILL CONTINUE TO MONITOR
[2017-07-19 10:00] VITALS: BP 120/73
[2017-07-19 10:16] LABS: BASOPHILS % (AUTO) 0.2 % (0.0-2.0); EOSINOPHILS # (AUTO) 0.4 /CMM (0.0-0.7); HEMATOCRIT 27 % (39-51); HEMOGLOBIN 8.9 g/dL (13.5-17.5); LYMPHOCYTES # (AUTO) 2.4 /CMM (0.8-4.8); LYMPHOCYTES % (AUTO) 16.6 % (20.0-44.0); MEAN CORPUSCULAR HEMOGLOBIN 31 PG (26.0-33.0); MEAN CORPUSCULAR HGB CONC 34 g/dl (31.0-36.0); MEAN CORPUSCULAR VOLUME 91 fL (80-96); MONOCYTES # (AUTO) 0.7 /CMM (0.1-1.30); MONOCYTES % (AUTO) 4.7 % (2.0-12.0); NEUTROPHILS % (AUTO) 75.5 % (43.0-81.0); PLATELET COUNT (AUTO) 239 /CMM (150-450); RDW COEFFICIENT OF VARIATION 16.9 (11.5-15.0); RED BLOOD CELL COUNT(AUTO) 2.93 MIL/uL (4.5-6.0); WHITE BLOOD COUNT (AUTO) 14.5 K/uL (4.3-11.0)
[2017-07-19 10:25] LABS: CALCIUM, SERUM 10.1 mg/dL (8.5-10.1); CARBON DIOXIDE 19 mmol/L (21-32); CHLORIDE 119 mmol/L (98-107); CREATININE 1.5 mg/dL (0.6-1.3); GLUCOSE 125 mg/dL (74-106); PHOSPHORUS 2.7 mg/dL (2.5-4.9); POTASSIUM 3.9 mmol/L (3.5-5.1); SODIUM SERUM 148 mmol/L (136-145); UREA NITROGEN, BLOOD 70 mg/dL (7-18)
--- NOTE | 2017-07-19 12:29 | NUR ---
RN NOTES PER MD, CANCEL STOOL FOR C. DIFF TOXIN, PT ON STOOL SOFTENERS AND HAS COLOSTOMY BAG
[2017-07-19 16:00] VITALS: BP 128/65
[2017-07-19] MEDS: MORPHINE SULFATE INJ 4 MG/ML DISP.SYRIN IV PRN ×2 (16:39→21:43)
--- NOTE | 2017-07-19 19:40 | NUR ---
STATEMENT DISTRIBUTION CLERK INITIAL NOTE PT IS IN BED RESTING. NON-VERBAL BUT OPENS EYES TO TOUCH. PT IS ON VENT, SETTINGS ORDERED, TOLERATING WELL. ON CONTINUED TELE MONITORING. GTUBE IS INTACT WITH NOVASOURCE AT 40 ML/HR. ORDER TO FLUSH NG-TUBE WITH 250 CC Q4H. IV ACCESS IS INTACT AND PATENT NO REDNESS OR INFILTRATION NOTED. COLOSTOMY BAG IS INTACT AND PATENT. BED IS IN LOW AND LOCKED POSITION, SIDE RAILS UP. ENDORSED TO NEXT SHIFT FOR CONTINUITY OF CARE
--- NOTE | 2017-07-19 19:40 | NUR ---
RN OPENING NOTES PATIENT IS IN BED, NON VERBAL, OPENS EYES. VS STABLE. PAIN OR DISCOMFORT NOTED AT THIS TIME. RESPIRATIONS EVEN AND UNLABORED. NO SOB NOTED. IV ACCESS ON LEFT UA PATENT AND INTACT, NO REDNESS OR INFILTRATION NOTED. TELE MONITOR IS IN PLACE, SR 96 BPM. ON VENT, TRACH SECURE IN PROPER PLACE. NOVASOURCE IS INFUSING AT 40 ML/ HR. BED IN LOW AND LOCKED POSITION, SIDE RAILS X2. CALL LIGHT WITHIN EASY REACH. WILL CONTINUE TO MONITOR AND ACCESS DURING THE SHIFT.
[2017-07-19 20:00] VITALS: BP 133/71
[2017-07-19] MEDS: SENNOSIDES 8.6 MG TABLET GT SCH (21:42)
[2017-07-20] VITALS (7 sets, daily range): BP systolic 134–137; BP diastolic 60–63
[2017-07-20] MEDS: DAKINS QUARTER STRENGTH (0.125%) 480 ML BOTTLE TOP SCH ×2 (04:14→17:42)
[2017-07-20] MEDS: MEROPENEM 500 MG in IV NS 0.9% 50 ML IV SCH (05:42)
[2017-07-20] MEDS: RENAL NOVASOURCE 1,000 ML BOTTLE GT PRN (05:46)
--- NOTE | 2017-07-20 06:53 | NUR ---
RN CLOSING NOTES PATIENT IS SLEEPING IN BED,EASY TO AROUSE, NON VERBAL. VS STABLE. NO PAIN OR DISCOMFORT NOTED AT THIS TIME. RESPIRATIONS EVEN AND UNLABORED. NO SOB NOTED. IV ACCESS ON LEFT UA PATENT AND INTACT, NO REDNESS OR INFILTRATION NOTED. TELE MONITOR IS IN PLACE, SR 87 BPM. ON VENT, TRACH SECURE IN PROPER PLACE. NOVASOURCE IS INFUSING AT 40 ML/ HR. F/C IN PLACE, DRAINING CLEAR AND YELLOW URINE. ALL NEEDS ARE MET AND MEDICATIONS GIVEN PER MD ORDER. BED IN LOW AND LOCKED POSITION, SIDE RAILS X2. CALL LIGHT WITHIN EASY REACH. WILL ENDORSE TO RN DAY SHIFT FOR ANA.
--- NOTE | 2017-07-20 07:25 | NUR ---
television and radio repairer initial notes Receive patient in bed, comfortable, on mechanical vent, 02 sat of 100%. non verbal, opens his eyes. GT intact and patent with feeding infusing well. Nieto in placed attached to drainage bag. Colostomy on the right lower quadrant. On tel monitor SR heart rate of 79 with PVC, 1st degree AV block, and PAC. no facial grimace noted. Will continue to monitor accordingly.
[2017-07-20 07:34] LABS: BASOPHILS % (AUTO) 0.2 % (0.0-2.0); EOSINOPHILS # (AUTO) 0.5 /CMM (0.0-0.7); HEMATOCRIT 25 % (39-51); HEMOGLOBIN 8.4 g/dL (13.5-17.5); LYMPHOCYTES # (AUTO) 2.7 /CMM (0.8-4.8); LYMPHOCYTES % (AUTO) 17.8 % (20.0-44.0); MEAN CORPUSCULAR HEMOGLOBIN 30 PG (26.0-33.0); MEAN CORPUSCULAR HGB CONC 34 g/dl (31.0-36.0); MEAN CORPUSCULAR VOLUME 90 fL (80-96); MONOCYTES # (AUTO) 0.6 /CMM (0.1-1.30); MONOCYTES % (AUTO) 4.2 % (2.0-12.0); NEUTROPHILS # (AUTO) 11.5 /CMM (1.8-8.9); NEUTROPHILS % (AUTO) 74.8 % (43.0-81.0); PLATELET COUNT (AUTO) 210 /CMM (150-450); RDW COEFFICIENT OF VARIATION 16.6 (11.5-15.0); RED BLOOD CELL COUNT(AUTO) 2.79 MIL/uL (4.5-6.0); WHITE BLOOD COUNT (AUTO) 15.4 K/uL (4.3-11.0)
[2017-07-20 07:47] LABS: CALCIUM, SERUM 9.8 mg/dL (8.5-10.1); CARBON DIOXIDE 21 mmol/L (21-32); CHLORIDE 118 mmol/L (98-107); CREATININE 1.4 mg/dL (0.6-1.3); GLUCOSE 104 mg/dL (74-106); MAGNESIUM 1.9 mg/dL (1.8-2.4); PHOSPHORUS 2.7 mg/dL (2.5-4.9); POTASSIUM 3.8 mmol/L (3.5-5.1); SODIUM SERUM 148 mmol/L (136-145); UREA NITROGEN, BLOOD 70 mg/dL (7-18)
[2017-07-20] MEDS: DOXYCYCLINE HYCLATE (100 MG) 100 MG TABLET PO SCH (08:58)
[2017-07-20] MEDS: DOCUSATE SODIUM LIQ 100 MG/10 ML UDC GT SCH ×2 (08:58→17:41)
[2017-07-20] MEDS: PANTOPRAZOLE 40 MG VIAL IV SCH ×2 (08:58→17:41)
[2017-07-20] MEDS: MAGNESIUM OXIDE 400 MG TABLET GT SCH (08:58)
[2017-07-20] MEDS: FINASTERIDE (5 MG) 5 MG TABLET GT SCH (08:59)
[2017-07-20] MEDS: buPROPion 75 MG TABLET GT SCH ×2 (08:59→17:41)
[2017-07-20] MEDS: AMLODIPINE BESYLATE 5 MG TABLET PO SCH ×2 (08:59→17:42)
[2017-07-20] MEDS: predniSONE 5 MG TABLET GT SCH (08:59)
[2017-07-20] MEDS: QUETIAPINE FUMARATE 25 MG TABLET GT SCH ×2 (08:59→17:42)
[2017-07-20] MEDS: FERROUS SULFATE UDC 300 MG/5 ML UDC GT SCH ×2 (09:00→17:41)
--- NOTE | 2017-07-20 10:12 | NUR ---
RT REC'D PT TRACHED INTACT AND SECURED ON [facility] VENT. VENT PLUGGED IN RED OUTLET ALARMS ON AND AUDIBLE. BAG AND MASK AT [facility]. PT SHOWS NO SIGN OF RESP DISTRESS ATT WILL CONTINUE TO MONITOR
[2017-07-20] MEDS: MORPHINE SULFATE INJ 4 MG/ML DISP.SYRIN IV PRN (13:14)
--- NOTE | 2017-07-20 19:30 | NUR ---
telephone ad takerpatternmaker helper notes [facility] and report given. Pictures taken and filed in the patient chart. Flu and pneumonia vaccine not given due to patient already received vaccinations. Still waiting for the transportation. Signed discharge paper and belonging list with 2 RN due to patient unable to sign. Called Richie spouse and informed about patient going back to [facility]. Vital signs checked and recorded. Dressing changed and colostomy bag changed. IV still intact and patent. MD and charge nurse aware.
--- NOTE | 2017-07-20 19:30 | NUR ---
RECYCLING SPECIALIST NOTE PATIENT STABLE. SON AT BED SIDE. WAITING FOR TRANSPORT.
--- NOTE | 2017-07-20 20:20 | NUR ---
AIRCRAFT ORDNANCE TECHNICIAN NOTE PATIENT DISCHARGED PER [facility] PROTOCOL TO [facility] IN STABLE CONDITION. RT PRESENT. ID BAND REMOVED. VENT SETTINGS CHECKED AND IN PLACE. COLOSTOMY INTACT. DRESSINGS C/D/I. PATIENT CLEAN DRY AND COMFORTABLE. NOTIFIED [facility] THAT PATIENT WAS PICKED UP.
[2017-07-20] MEDS ORDERED: MEROPENEM 1 G in IV NS 0.9% 100 ML IV SCH (21:00)
== END 2017-07-20 20:40 | DRG 853 ==
LOC: ER 14:04 → TELE 17:33 → UNDODISIN 07-20 16:45
PROVIDERS: ADMIT Internal Medicine; ATTEND Internal Medicine
PROC: 5A1955Z Respiratory Ventilation, Greater than 96 Consecutive Hours (ICD-10-PCS; principal; 2017-07-13)
PROC: 30233N1 Transfusion of Nonautologous Red Blood Cells into Peripheral Vein, Percutaneous Approach (ICD-10-PCS; 2017-07-13)
PROC: 0KBN0ZZ Excision of Right Hip Muscle, Open Approach (ICD-10-PCS; 2017-07-15)
PROC: 0DB68ZX Excision of Stomach, Via Natural or Artificial Opening Endoscopic, Diagnostic (ICD-10-PCS; 2017-07-16)
PROC: 0KBP0ZZ Excision of Left Hip Muscle, Open Approach (ICD-10-PCS; 2017-07-16)
DX: A41.9 Sepsis, unspecified organism (principal); J18.9 Pneumonia, unspecified organism; G93.40 Encephalopathy, unspecified; Z99.11 Dependence on respirator [ventilator] status; J90 Pleural effusion, not elsewhere classified; L89.154 Pressure ulcer of sacral region, stage 4; J96.11 Chronic respiratory failure with hypoxia; K92.2 Gastrointestinal hemorrhage, unspecified; N17.9 Acute kidney failure, unspecified; R40.3 Persistent vegetative state; N39.0 Urinary tract infection, site not specified; E87.1 Hypo-osmolality and hyponatremia; J98.11 Atelectasis; J44.9 Chronic obstructive pulmonary disease, unspecified; Z93.0 Tracheostomy status; E87.6 Hypokalemia; I10 Essential (primary) hypertension; I71.4 Abdominal aortic aneurysm, without rupture; D50.0 Iron deficiency anemia secondary to blood loss (chronic); D72.829 Elevated white blood cell count, unspecified; K59.00 Constipation, unspecified; M06.9 Rheumatoid arthritis, unspecified; Z87.820 Personal history of traumatic brain injury; Z93.3 Colostomy status; E86.9 Volume depletion, unspecified; B96.89 Other specified bacterial agents as the cause of diseases classified elsewhere; N40.1 Benign prostatic hyperplasia with lower urinary tract symptoms; K29.70 Gastritis, unspecified, without bleeding
CPT/HCPCS: 31720; 36415; 71045-TC; 71250-TC; 80048-TC; 80076-TC; 81000-TC; 82306; 82728-TC; 82746; 83010; 83540-TC; 83615-TC; 83735-TC; 84100-TC; 84155; 84165; 84443-TC; 84484-TC; 84550-TC; 85025-TC; 85045-TC; 85652-TC; 85730-TC; 86850-TC; 86921-TC; 87040-TC; 87070-TC; 87086-TC; 87186-TC; 88305-TC; 88313-TC; 88342; 94002-TC; 94003-TC; 94760-TC; 94762-TC; A4216; A4606; A4623; A6248; A6253; A6402; A6403; A7526; C9113; J0696; J1200; J1956; J2185; J2270; J2704; J3480; J7030; J7040; J7042; J7050; J7060; J7512; P9016-BL; Z7610